=== PATIENT | female | born 1985 | race Hispanic/Latino ===

== ENCOUNTER 2017-12-14 14:41 | Emergency (ER) | payer OTHER, SELFPAY ==
[2017-12-14] MEDS ORDERED: Lidocaine 1% w/Epinephrine 1:100K 30 ML VIAL ONE (14:52)
[2017-12-14] MEDS ORDERED: Bacitracin Zinc 1 Packet ONE ×2 (15:11→15:17)
== END 2017-12-14 15:24 | disposition home or self-care (01) ==
LOC: BURERS 14:41
DX: S61.512A Laceration without foreign body of left wrist, initial encounter (principal); W26.0XXA Contact with knife, initial encounter; Y99.0 Civilian activity done for income or pay; Y92.89 Other specified places as the place of occurrence of the external cause
CPT/HCPCS: 12002; J2001